=== PATIENT | female | born 2005 | race Caucasian/White ===

== ENCOUNTER 2025-05-28 15:08 | Emergency (ER) | payer OTHER ==
[~2025-05-28] VITALS: Ht 165.1 cm; Wt 65.9 kg
[2025-05-28 18:51] VITALS: BP 108/58; TEMP 97; O2SAT 98
[2025-05-28] MEDS ORDERED: FLON1SPR NARES (18:52)
[2025-05-28] MEDS ORDERED: BENZ200C70 PO (18:52)
[2025-05-28] MEDS ORDERED: CETI-24 PO (18:52)
== END 2025-05-28 19:05 | disposition home or self-care (01) ==
LOC: M ED 15:08
DX: J06.9 Acute upper respiratory infection, unspecified (principal); J30.89 Other allergic rhinitis; Z79.899 Other long term (current) drug therapy